=== PATIENT | female | born 1960 | race African-American/Black ===

== ENCOUNTER 2019-11-09 15:37 | Emergency (ER) | payer OTHER ==
[~2019-11-09] VITALS: Ht 167.6 cm; Wt 108.9 kg
[~2019-11-09 15:37] MED LIST: AMBIEN 10 MG TA10 MG PO; AMLODIPINE BESY10 MG PO; CELEBREX 200 M200 M1 PO; CIPROFLOXACIN500 M1 PO; ENDOCET 10-3251 EACH PO; ESTRACE0.5 MG PO; FLAGYL500 M1 PO; FLONASE16 GM NASAL; GREEN TEA1 EACH PO; IBUPROFEN 600600 M1 PO; NORCO 5-325 TA1 EACH PO; RANITIDINE 150150 M1 PO; TYLENOL325 MG PO; VALIUM2 MG PO; VITAMIN D400 UNI1 PO; ZOFRAN4 MG DISSOLVE
[2019-11-09 20:18] VITALS: BP 151/74
== END 2019-11-09 20:12 | disposition home or self-care (01) ==
LOC: ER 15:37
DX: S00.03XA Contusion of scalp, initial encounter (principal); I10 Essential (primary) hypertension; K21.9 Gastro-esophageal reflux disease without esophagitis; F32.9 Major depressive disorder, single episode, unspecified; Z90.711 Acquired absence of uterus with remaining cervical stump; Z98.890 Other specified postprocedural states; Z79.2 Long term (current) use of antibiotics; Z79.899 Other long term (current) drug therapy; Z88.6 Allergy status to analgesic agent; W18.09XA Striking against other object with subsequent fall, initial encounter; Y93.89 Activity, other specified; Y92.098 Other place in other non-institutional residence as the place of occurrence of the external cause; Y99.8 Other external cause status